=== PATIENT | male | born 1990 | race Two or more races ===

== ENCOUNTER 2023-06-03 20:57 | Emergency (ER) | payer SELFPAY ==
[~2023-06-03] VITALS: Ht 180.3 cm; Wt 134.6 kg
[2023-06-03] MEDS ORDERED: KETOROLAC TROMETHAMINE 30 MG/ML VIAL IM ONE (22:30)
[2023-06-03] MEDS ORDERED: ACETAMINOPHEN 500 MG TABLET PO ONE (22:30)
[2023-06-03 23:16] VITALS: BP 146/88; PULSE 99; RESP 18; TEMP 98.3
== END 2023-06-03 23:26 | disposition home or self-care (01) ==
LOC: EMS 20:58
DX: S83.92XA Sprain of unspecified site of left knee, initial encounter (principal); F12.90 Cannabis use, unspecified, uncomplicated; X58.XXXA Exposure to other specified factors, initial encounter; Y93.89 Activity, other specified; Y92.89 Other specified places as the place of occurrence of the external cause; Y99.8 Other external cause status
CPT/HCPCS: 99283; 73562; 96372; J1885